=== PATIENT | male | born 1945 | race Caucasian/White ===

== ENCOUNTER 2018-02-12 08:08 | Emergency (ER) | payer MEDICARE, OTHER ==
[~2018-02-12] VITALS: Ht 167.6 cm; Wt 79.4 kg
--- NOTE | 2018-02-12 08:32 | NUR ---
PT IS IN ROOM #2B. DR SCHWARZ EVALUATED THE PT.
[2018-02-12 09:01] LABS: BASOPHILS % (AUTO) 0.7 % (0.0-2.0); EOSINOPHILS # (AUTO) 0.1 K/uL (0.0-0.7); HEMATOCRIT 39.2 % (36.7-47.1); HEMOGLOBIN 13.4 g/dL (12.5-16.3); LYMPHOCYTES # (AUTO) 1.4 K/uL (20.0-40.0); LYMPHOCYTES % (AUTO) 22.9 % (20.5-51.5); MEAN CORPUSCULAR HEMOGLOBIN 32.5 uug (23.8-33.4); MEAN CORPUSCULAR HGB CONC 34 g/dL (32.5-36.3); MEAN CORPUSCULAR VOLUME 95.4 fL (73.0-96.2); MONOCYTES # (AUTO) 0.7 K/uL (2.0-10.0); MONOCYTES % (AUTO) 11.1 % (0.0-11.0); NEUTROPHILS # (AUTO) 3.9 K/uL (1.8-8.9); NEUTROPHILS % (AUTO) 63.3 % (38.5-71.5); PLATELET COUNT (AUTO) 204 K/uL (152-348); RED BLOOD CELL COUNT(AUTO) 4.11 MIL/uL (4.06-5.63); WHITE BLOOD COUNT (AUTO) 6.1 K/uL (3.6-10.2)
[2018-02-12 09:11] LABS: ALANINE AMINOTRANSFERASE 28 U/L (16-63); ALKALINE PHOSPHATASE 78 U/L (50-136); ASPARTATE AMINOTRANSFERASE 25 U/L (15-37); BILIRUBIN,DIRECT 0.1 mg/dL (0.0-0.2); BILIRUBIN,TOTAL 0.3 mg/dL (0.2-1.0); CARBON DIOXIDE 28 mmol/L (21-32); CHLORIDE 103 mmol/L (98-107); GLUCOSE 102 mg/dL (74-106); POTASSIUM 3.8 mmol/L (3.5-5.1); TOTAL PROTEIN, SERUM 7.1 g/dL (6.4-8.2); UREA NITROGEN, BLOOD 18 mg/dL (7-18)
--- NOTE | 2018-02-12 09:34 | NUR ---
PT WAS D/C'd TO HOME. D/C INSTRUCTIONS GIVEN TO THE PT.
[2018-02-12 09:37] VITALS: BP 141/81
== END 2018-02-12 09:39 | disposition home or self-care (01) ==
LOC: ER 08:08
DX: Z77.098 Contact with and (suspected) exposure to other hazardous, chiefly nonmedicinal, chemicals (principal)
CPT/HCPCS: 36415; 85025; 93005; A4663

== ENCOUNTER 2018-02-14 19:24 | Emergency (ER) | payer MEDICARE, OTHER ==
[~2018-02-14] VITALS: Ht 167.6 cm; Wt 81.6 kg
--- NOTE | 2018-02-14 19:45 | NUR ---
Pt ambulates to ER with c/o bilateral lower leg swelling x 1 week. Pt denies pain. Pt denies chest pain/shortness of breath. Respirations even + unlabored.
[2018-02-14 20:15] LABS: BASOPHILS % (AUTO) 0.7 % (0.0-2.0); EOSINOPHILS # (AUTO) 0.1 K/uL (0.0-0.7); EOSINOPHILS % (AUTO) 1.5 % (0.0-7.0); HEMATOCRIT 38.6 % (36.7-47.1); HEMOGLOBIN 13.3 g/dL (12.5-16.3); LYMPHOCYTES # (AUTO) 1.5 K/uL (20.0-40.0); LYMPHOCYTES % (AUTO) 28.6 % (20.5-51.5); MEAN CORPUSCULAR HEMOGLOBIN 33.2 uug (23.8-33.4); MEAN CORPUSCULAR HGB CONC 35 g/dL (32.5-36.3); MEAN CORPUSCULAR VOLUME 96.1 fL (73.0-96.2); MONOCYTES # (AUTO) 0.5 K/uL (2.0-10.0); MONOCYTES % (AUTO) 10.4 % (0.0-11.0); NEUTROPHILS % (AUTO) 58.8 % (38.5-71.5); PLATELET COUNT (AUTO) 218 K/uL (152-348); RED BLOOD CELL COUNT(AUTO) 4.02 MIL/uL (4.06-5.63); WHITE BLOOD COUNT (AUTO) 5.1 K/uL (3.6-10.2)
[2018-02-14 20:22] LABS: CARBON DIOXIDE 28 mmol/L (21-32); CHLORIDE 103 mmol/L (98-107); CREATININE 1.1 mg/dL (0.6-1.3); GLUCOSE 96 mg/dL (74-106); POTASSIUM 3.9 mmol/L (3.5-5.1); UREA NITROGEN, BLOOD 17 mg/dL (7-18)
[2018-02-14 20:28] LABS: ALANINE AMINOTRANSFERASE 28 U/L (16-63); ALKALINE PHOSPHATASE 60 U/L (50-136); ASPARTATE AMINOTRANSFERASE 25 U/L (15-37); BILIRUBIN,TOTAL 0.3 mg/dL (0.2-1.0); TOTAL PROTEIN, SERUM 7.2 g/dL (6.4-8.2)
--- NOTE | 2018-02-14 21:39 | NUR ---
Patient discharged to home in stable conditon. Written and verbal after care instructions given. Patient verbalizes understanding of instructions.
[2018-02-14 21:47] VITALS: BP 138/81
== END 2018-02-14 21:49 | disposition home or self-care (01) ==
LOC: ER 19:26
DX: R60.9 Edema, unspecified (principal)
CPT/HCPCS: 36415; 71045; 85025; 85610; 93005; A4663

== ENCOUNTER 2020-06-12 19:47 | Inpatient (IN) | payer MEDICARE, OTHER ==
[~2020-06-12] VITALS: Ht 167.6 cm; Wt 74.1 kg
[2020-06-12] MEDS ORDERED: IV NORMAL SALINE 1,000 ML IV ONE (20:30)
--- NOTE | 2020-06-12 20:30 | NUR ---
Unable to intitate IV bolus of normal saline due to patient being very combative, and very resistant to placement of angiocath. Orders cancelled at this time.
--- NOTE | 2020-06-12 20:43 | NUR ---
metal room dental technician in room to draw blood.
--- NOTE | 2020-06-12 20:50 | NUR ---
cephalometric technician at bedside, unable to send patient to CT scan as he agitated and uncooperative, made aware.
[2020-06-12 21:05] LABS: BASOPHILS # (AUTO) 0.1 K/uL (0.0-8.0); BASOPHILS % (AUTO) 0.6 % (0.0-2.0); EOSINOPHILS % (AUTO) 0.1 % (0.0-7.0); HEMATOCRIT 44.2 % (36.7-47.1); HEMOGLOBIN 14.8 g/dL (12.5-16.3); LYMPHOCYTES # (AUTO) 1.2 K/uL (20.0-40.0); LYMPHOCYTES % (AUTO) 13.2 % (20.5-51.5); MEAN CORPUSCULAR HEMOGLOBIN 31.3 uug (23.8-33.4); MEAN CORPUSCULAR HGB CONC 34 g/dL (32.5-36.3); MEAN CORPUSCULAR VOLUME 93.1 fL (73.0-96.2); MONOCYTES # (AUTO) 0.6 K/uL (2.0-10.0); MONOCYTES % (AUTO) 6.5 % (0.0-11.0); NEUTROPHILS # (AUTO) 7.2 K/uL (1.8-8.9); NEUTROPHILS % (AUTO) 79.6 % (38.5-71.5); PLATELET COUNT (AUTO) 236 K/uL (152-348); RED BLOOD CELL COUNT(AUTO) 4.74 MIL/uL (4.06-5.63); WHITE BLOOD COUNT (AUTO) 9.1 K/uL (3.6-10.2)
[2020-06-12 21:12] LABS: CREATININE 1.3 mg/dL (0.6-1.3)
[2020-06-12 21:18] LABS: BILIRUBIN,TOTAL 0.3 mg/dL (0.2-1.0); TOTAL PROTEIN, SERUM 7.5 g/dL (6.4-8.2)
--- NOTE | 2020-06-12 21:43 | NUR ---
ALOC patient uncooperative with IV administration, keeps moving and attempting to grab hospital personnel. Patient tried to get out of bed and run out of the ER. Tie Binder notified for need for 1 to 1 sitter. Tie Binder stated that it is unavailable at this time, said to call security to watch the patient. Security called to bedside to monitor patient for elopement.
--- NOTE | 2020-06-12 21:58 | NUR ---
Patient becoming increasing agitated, combative, and aggressive. MD notifed. Pending new orders.
[2020-06-12] MEDS ORDERED: LORAZEPAM 2 MG/1 ML VIAL IM ONE ×2 (22:00→23:30)
[2020-06-12] MEDS ORDERED: diphenhydrAMINE 50 MG/1 ML VIAL IM ONE (22:00)
[2020-06-12] MEDS ORDERED: HALOPERIDOL LACTATE 5 MG/1 ML VIAL IM ONE ×2 (22:00→23:30)
[2020-06-12] MEDS ORDERED: diphenhydrAMINE 50 MG/1 ML VIAL ONE (22:06)
[2020-06-12] MEDS ORDERED: HALOPERIDOL LACTATE 5 MG/1 ML VIAL ONE (22:07)
[2020-06-12] MEDS ORDERED: LORAZEPAM 2 MG/1 ML VIAL ONE (22:08)
--- NOTE | 2020-06-12 22:12 | NUR ---
Patient still not alert and orientated, confused. Screaming continously in his room. MD made aware.
--- NOTE | 2020-06-12 22:50 | NUR ---
Patient requested to use the restroom, went to go assist the patient. He screamed angrily at me and urinated himself.
--- NOTE | 2020-06-12 23:55 | NUR ---
Patient is now cooperative and calm, released from restraints.
--- NOTE | 2020-06-12 23:55 | NUR ---
cancelled orders for ATIVAN & Haldol for patient.
--- NOTE | 2020-06-13 | NUR ---
test and turn up technician arrived to take patient to CT scan. Patient out for CT scan.
--- NOTE | 2020-06-13 00:20 | NUR ---
Patient calmer than before, however he keeps pulling off his blood pressure cuff, pulse oximeter, and electrodes constantly throughout the entire time he has been in my care making it difficult to measure consistent vital signs.
[2020-06-13 00:39] LABS: *BILIRUBIN,URIN 1+ (NEGATIVE); *BLOOD, URINE NEGATIVE (NEGATIVE); *COLOR,URINE YELLOW (YELLOW); *KETONES,URINE 2+ (NEGATIVE); *UROBILINOGEN,URINE 0.2 E.U./dl (NORMAL); LEUKOCYTE ESTERASE ,URINE NEGATIVE (NEGATIVE); NITRITE, URINE NEGATIVE (NEGATIVE); PH,URINE 5.5 (5.0-8.0); UGLUCOSE NEGATIVE (NEGATIVE)
--- NOTE | 2020-06-13 00:47 | NUR ---
[employer] [facility] called, KAMRAN Calderon paged. Pending call back.
[2020-06-13 00:48] LABS: *CLARITY,URINE HAZY (CLEAR)
[2020-06-13 00:49] LABS: BACTERIA,URINE NONE SEEN /HPF (NONE SEEN); MUCUS,URINE MODERATE /LPF (0-FEW); RBC,URINE 0-3 /HPF (0-3); SQUAMOUS EPITHELIAL CELL,UR FEW /HPF (NONE SEEN)
--- NOTE | 2020-06-13 00:49 | NUR ---
Called for room, patient will be going to telemetry room 315.
--- NOTE | 2020-06-13 00:58 | NUR ---
KAMRAN Calderon called back and connected to MD Arias.
[2020-06-13] MEDS ORDERED: MAGNESIUM HYDROXIDE 30 ML LIQUID UDC PO PRN (01:15)
[2020-06-13] MEDS ORDERED: ACETAMINOPHEN 325 MG TABLET PO PRN (01:15)
[2020-06-13] MEDS ORDERED: ONDANSETRON 4 MG/2 ML VIAL IV PRN (01:15)
[2020-06-13] MEDS ORDERED: Z GUARD REMEDY PASTE 57 GM TUBE TOP PRN (01:15)
--- NOTE | 2020-06-13 01:20 | NUR ---
Reattempted to place an IV with SHARONDA Starr and SHARONDA Schneider on patient. Patient attempted to punch my face. 22g placed on R wrist.
--- NOTE | 2020-06-13 01:42 | NUR ---
Report given to SHARONDA Calderon. Patient pending COVID result.
[2020-06-13] MEDS ORDERED: SENN-261 PO (01:44)
[2020-06-13] MEDS ORDERED: BACL10TA PO (01:44)
[2020-06-13] MEDS ORDERED: ATIVAN (01:44)
[2020-06-13] MEDS ORDERED: NAPR-1192 PO (01:44)
[2020-06-13] MEDS ORDERED: DOCU-270 PO (01:44)
[2020-06-13] MEDS ORDERED: HYDR-4209 PO (01:44)
--- NOTE | 2020-06-13 01:55 | NUR ---
animal technicianponcho Vallejo called back to notify that patient is COVID negative.
--- NOTE | 2020-06-13 02:30 | NUR ---
Pt. admitted to telemetry room 315, under care of AUTO WRECKER Fatou Calderon. Belongs List completed.
--- NOTE | 2020-06-13 02:55 | NUR ---
Received patient in bed from ED. Confused alert to self only. No s/s of acute distress noted at this time. Patient in RA denies SOB and pain. nurse monitoring in place. Right wrist IV patent and intact. Patient is calm and laying in bed. Bed locked and in lowest position with alarm on.
[2020-06-13] MEDS: IV NS 1000 ML 1,000 ML IV PRN ×2 (03:32→17:49)
[2020-06-13 03:33] VITALS: BP 147/85
[2020-06-13 04:00] VITALS: BP 147/85
[2020-06-13] MEDS ORDERED: OLANZAPINE 10 MG VIAL IM ONE ×2 (04:15→04:30)
--- NOTE | 2020-06-13 04:24 | NUR ---
Patient increasingly agitated, confused, and combative. Attempting to get out of bed, throwing side table, and kicking their legs at the staff. Unable to be redirected. Patient continued to grab and hit staff. Yelling "They're going to kill me, they're going to kill me. They want to take my marilyn". Code isabel initiated and notified KAMRAN Calderon of patient condition. New orders for one time Zyprexa 5mg IM. Will administer and continue to monitor patient for safety and adverse reactions.
[2020-06-13] MEDS: PANTOPRAZOLE SODIUM 40 MG TABLET.DR PO SCH (07:00)
--- NOTE | 2020-06-13 07:00 | NUR ---
Patient in bed attempting to get out of bed. Bilateral wrist restraints in place for safety. Patient unable to be redirected. Safety measures in place, will endorse to oncoming nurse.
[2020-06-13 07:20] LABS: BASOPHILS # (AUTO) 0.1 K/uL (0.0-8.0); BASOPHILS % (AUTO) 0.7 % (0.0-2.0); EOSINOPHILS # (AUTO) 0.2 K/uL (0.0-0.7); EOSINOPHILS % (AUTO) 2.1 % (0.0-7.0); HEMATOCRIT 43.3 % (36.7-47.1); HEMOGLOBIN 14.3 g/dL (12.5-16.3); LYMPHOCYTES # (AUTO) 2.1 K/uL (20.0-40.0); LYMPHOCYTES % (AUTO) 26.1 % (20.5-51.5); MEAN CORPUSCULAR HEMOGLOBIN 30.9 uug (23.8-33.4); MEAN CORPUSCULAR HGB CONC 33 g/dL (32.5-36.3); MEAN CORPUSCULAR VOLUME 93.6 fL (73.0-96.2); MONOCYTES # (AUTO) 0.8 K/uL (2.0-10.0); MONOCYTES % (AUTO) 10.3 % (0.0-11.0); NEUTROPHILS # (AUTO) 4.8 K/uL (1.8-8.9); NEUTROPHILS % (AUTO) 60.8 % (38.5-71.5); PLATELET COUNT (AUTO) 221 K/uL (152-348); RED BLOOD CELL COUNT(AUTO) 4.63 MIL/uL (4.06-5.63); WHITE BLOOD COUNT (AUTO) 7.9 K/uL (3.6-10.2)
--- NOTE | 2020-06-13 07:26 | NUR ---
Received in bed awake and oriented to name and responsive to stimuli. No resp distress noted. Patient on soft restraints due to danger to others. Patient noted agitated and combative. Attempts to redirect unsuccessful. Safety measures are maintained. Sitter at bedside. Patient is kept comfortable. Will continue to monitor.
[2020-06-13 07:43] LABS: BILIRUBIN,TOTAL 0.4 mg/dL (0.2-1.0); MAGNESIUM 1.8 mg/dL (1.8-2.4); PHOSPHOROUS 2.7 mg/dL (2.5-4.9); POTASSIUM 3.1 mmol/L (3.5-5.1)
[2020-06-13 07:55] LABS: THYROID STIMULATING HORMONE 0.364 mIU/mL (0.358-3.740)
[2020-06-13 09:18] VITALS: BP 152/96
[2020-06-13] MEDS ORDERED: POTASSIUM CHLORIDE 20 MEQ TAB.PRT.SR PO SCH (10:15)
[2020-06-13 12:02] VITALS: BP 145/82
--- NOTE | 2020-06-13 12:30 | NUR ---
Rafi son came to visit, given update on condition, unable to say why patient was on hospice. He had no complaints.
[2020-06-13] MEDS ORDERED: BACLOFEN 10 MG TABLET PO PRN (15:15)
[2020-06-13] MEDS ORDERED: HYDROCODONE/APAP 5-325MG TABLET PO SCH (15:15)
[2020-06-13] MEDS ORDERED: SENNOSIDES 1 TABLET PO PRN (15:15)
[2020-06-13 16:24] VITALS: BP 159/95
[2020-06-13] MEDS: DOCUSATE SODIUM 100 MG CAPSULE PO SCH (17:03)
--- NOTE | 2020-06-13 17:06 | NUR ---
Called [facility] message left to follow up with DNR paper and status. Awaiting call back.
--- NOTE | 2020-06-13 19:23 | NUR ---
ALERT AND ORIENTED TO NAME. NO RESPIRATORY DISTRESS. NO FACIAL GRIMACING NOTED. IV SITE INTACT AND PATENT TOLERATING HYDRATION. DUE MEDS GIVEN AND TOLERATED. PATIENT WITH EPISODE OF AGITATION AND COMBATIVENESS TO STAFF. ABLE TO REDIRECT SOMETIMES. SAFETY MEASURES MAINTAINED. SITTER AT BEDSIDE. KEPT COMFORTABLE. ENDORSED ACCORDINGLY.
[2020-06-13 20:00] VITALS: BP 152/99
[2020-06-13] MEDS: risperiDONE 0.5 MG TABLET PO SCH (20:58)
[2020-06-14 00:21] VITALS: BP 154/97
--- NOTE | 2020-06-14 00:29 | NUR ---
Received patient in bed, calm, and cooperative. No s/s of acute distress noted at this time. On RA denies SOB. Sitter at bedside for safety. Compliant with medications. Left wrist IV patent and intact. cardiac monitor in place. Safety measures initiated, bed locked in lowest position, alarm on and call light within reach.
[2020-06-14 06:06] VITALS: BP 154/93
[2020-06-14] MEDS: PANTOPRAZOLE SODIUM 40 MG TABLET.DR PO SCH (06:12)
[2020-06-14 06:32] LABS: BASOPHILS # (AUTO) 0.1 K/uL (0.0-8.0); BASOPHILS % (AUTO) 0.9 % (0.0-2.0); EOSINOPHILS # (AUTO) 0.2 K/uL (0.0-0.7); EOSINOPHILS % (AUTO) 3.1 % (0.0-7.0); HEMATOCRIT 39.7 % (36.7-47.1); HEMOGLOBIN 13.4 g/dL (12.5-16.3); LYMPHOCYTES % (AUTO) 29.1 % (20.5-51.5); MEAN CORPUSCULAR HEMOGLOBIN 30.9 uug (23.8-33.4); MEAN CORPUSCULAR HGB CONC 34 g/dL (32.5-36.3); MEAN CORPUSCULAR VOLUME 91.9 fL (73.0-96.2); MONOCYTES # (AUTO) 0.6 K/uL (2.0-10.0); NEUTROPHILS % (AUTO) 57.9 % (38.5-71.5); PLATELET COUNT (AUTO) 218 K/uL (152-348); RED BLOOD CELL COUNT(AUTO) 4.32 MIL/uL (4.06-5.63); WHITE BLOOD COUNT (AUTO) 6.8 K/uL (3.6-10.2)
--- NOTE | 2020-06-14 06:57 | NUR ---
Patient calm and resting in bed. Cooperative last night with plan of care. Stand by assist to the bathroom, steady. Left FA IV patent and intact. cafeteria monitor in place. Sitter at bedside for safety. Safety measures in place.
[2020-06-14 07:00] LABS: MAGNESIUM 1.5 mg/dL (1.8-2.4); PHOSPHOROUS 2.9 mg/dL (2.5-4.9); POTASSIUM 3.4 mmol/L (3.5-5.1)
--- NOTE | 2020-06-14 07:30 | NUR ---
Received pt in bed awake and watching tv more communicative. No respiratory distress noted. Denies pain. Sitter is at bedside. Bed is low and locked. Patient is assisted to bathroom cooperative. IV on lfa intact and patent hydration tolerated. Sitter at bedside. Kept comfortable. Will continue to monitor.
[2020-06-14] MEDS ORDERED: HYDROCODONE/APAP 5-325MG TABLET PO PRN (07:42)
[2020-06-14 07:45] VITALS: BP 152/98
--- NOTE | 2020-06-14 07:45 | NUR ---
Called [facility] and spoke to Katey application development liaison. She said patient has dpoa sons Eliot and Sae. She will fax paperwork and polst around 9am when office opens. Gave floor fax number.
[2020-06-14] MEDS: IV NS 1000 ML 1,000 ML IV PRN (07:51)
[2020-06-14] MEDS ORDERED: MAGNESIUM SULFATE/D5W 100 ML IV SCH (08:15)
[2020-06-14] MEDS ORDERED: POTASSIUM CHLORIDE 20 MEQ TAB.PRT.SR PO ONE (08:15)
--- NOTE | 2020-06-14 08:30 | NUR ---
KAMRAN Monroe made aware of bp readings nno at this time.
[2020-06-14] MEDS: risperiDONE 0.5 MG TABLET PO SCH ×2 (08:42→21:15)
[2020-06-14] MEDS: DOCUSATE SODIUM 100 MG CAPSULE PO SCH ×2 (08:42→17:24)
--- NOTE | 2020-06-14 09:10 | NUR ---
Called Ilia and made aware of head ct result foreign metallic body relating to right anterior globe. He said it's ok to proceed.
--- NOTE | 2020-06-14 09:45 | NUR ---
Received call from Ilia, talked to radiologist and doesn't think it's a good idea to do mri d/t head ct result of small metallic foreign body and will cancel MRI. Patient made aware. KAMRAN Monroe made aware.
[2020-06-14 12:00] VITALS: BP 140/91
--- NOTE | 2020-06-14 12:25 | NUR ---
Credit Collections Specialist Consultation requested to identify responsible democrat/decision maker. 11:50am: This CASTING REPAIRER reviewed patient's chart, and found a POLST that was signed by the patient, filed in the chart. The date on the POLST was 05/07/2020, and it was faxed to the hospital by [facility], which has been providing care for the patient. Per nursing notes, the [facility] had stated that patient has a DPOA, Alexandru and Quevedo. This CASTING REPAIRER called patient's son Ashu, , who was available to speak with this CASTING REPAIRER. Ashu stated that he was not aware of the POLST, and that he did not know who Alexandru and Quevedo were. Ashu stated that patient does not have a healthcare directive or POA agents, and that he and his 2 siblings (Torin and Britt) were patient's next-of-kin. Ashu stated that patient does not have a spouse. This CASTING REPAIRER then called [facility], and spoke with Caro in order to gather additional information. Caro transferred this CASTING REPAIRER to the nurse assigned to the patient's case, Deni, however Deni was not available and this CASTING REPAIRER left Deni a voicemail message asking for a call back. 12:15pm: This CASTING REPAIRER notified patient's attending physician Jayjay Monroe about above. This CASTING REPAIRER will attempt to gather further information in order to identify decision maker for the patient. This CASTING REPAIRER and RN Sasha attempted to meet with the patient, but patient was asleep. This CASTING REPAIRER to follow-up at a later time.
--- NOTE | 2020-06-14 15:01 | NUR ---
2:40pm: This PLASTIC MACHINE OPERATOR followed up with [facility] [phone] in order to speak with patient's assigned hospice nurse, Deni. Deni was available, and receptive to speaking with this PLASTIC MACHINE OPERATOR. Deni stated that patient has been enrolled in hospice since April 21, 2020. Soon afterwards, patient was hospitalized and re-enrolled into hospice on 05/07/2020. This PLASTIC MACHINE OPERATOR discussed patient's POLST and code status, and Deni stated that patient was oriented x 4 and responsible for self when completing the POLST. Deni stated that Deni is in regular contact with patient's son Ashu, who is patient's next-of-kin, and that it was Deni's decision to hospitalize the patient on 06/13 due to ALOC. This PLASTIC MACHINE OPERATOR clarified the information that was provided by Katey at [facility] regarding patient's DPOA being Alexandru and Quevedo, but Deni stated that this was incorrect information and that he had verified with Katey ([facility] at [facility]) that patient does not have a DPOA, and patient's next of kin is son Ashu. This information was relayed to patient's attending physician Dr. Jayjay Monroe and to credit charge authorizerSHARONDA Baez.
[2020-06-14 16:01] VITALS: BP 146/94
--- NOTE | 2020-06-14 16:08 | NUR ---
This LABORATORY SPECIALIST met with patient's son Ashu. LABORATORY SPECIALIST discussed the clarification LABORATORY SPECIALIST had obtained from the hospice agency regarding patient's next-of-kin (see previous SS note), and Ashu expressed agreement. Ashu is the next-of-kin, , and lives in [place]. Discharge plans were discussed, and Ashu asked about information pertaining to assisted living facilities and [facility] facilities. This LABORATORY SPECIALIST provided Ashu with information and eligibility criteria on the different facilities and levels of care, and stated that LABORATORY SPECIALIST would refer Ashu to case management for further information and discharge planning. Ashu expressed agreement. This LABORATORY SPECIALIST then discussed patient's healthcare wishes, and Ashu stated that he plans on having a conversation about this with the patient. LABORATORY SPECIALIST offered to provide Ashu the application for an advanced healthcare directive, and Ashu was receptive to this. PLAN: This LABORATORY SPECIALIST contacted case management ([facility]) regarding discharge planning, and Taz to follow up with patient's son Ashu. This LABORATORY SPECIALIST provided patient's son Ashu with an application for an advanced healthcare directive, and a copy of the [employer] Guide to Correction and Care. This LABORATORY SPECIALIST informed patient's attending physician Jayjay Monroe of above.
--- NOTE | 2020-06-14 19:00 | NUR ---
Patient awake but forgetful no sob no chest pain. Patient has episodes of agitation in the past, 1;1 sitter provided by supervisor green end department, Patient has no complain of pain at this time, cont to monitor.
[2020-06-14 19:22] VITALS: BP 136/89
--- NOTE | 2020-06-14 22:41 | NUR ---
Patient pulled his IV line second time, reorient patient but with confusion. Patient was reinserted left upper arm tolerate well. Patient on 1;1 sitter for safety, remind sitter to monitor patient so that patient will not pulled out IV lines.
[2020-06-15] MEDS: IV NS 1000 ML 1,000 ML IV PRN (02:33)
[2020-06-15 04:00] VITALS: BP 130/78
[2020-06-15 04:49] VITALS: BP 130/78
[2020-06-15] MEDS: PANTOPRAZOLE SODIUM 40 MG TABLET.DR PO SCH (06:19)
[2020-06-15 06:48] LABS: BASOPHILS % (AUTO) 0.8 % (0.0-2.0); EOSINOPHILS # (AUTO) 0.2 K/uL (0.0-0.7); HEMOGLOBIN 14.3 g/dL (12.5-16.3); LYMPHOCYTES # (AUTO) 1.8 K/uL (20.0-40.0); LYMPHOCYTES % (AUTO) 34.1 % (20.5-51.5); MEAN CORPUSCULAR HEMOGLOBIN 30.7 uug (23.8-33.4); MEAN CORPUSCULAR HGB CONC 33 g/dL (32.5-36.3); MEAN CORPUSCULAR VOLUME 92.5 fL (73.0-96.2); MONOCYTES # (AUTO) 0.5 K/uL (2.0-10.0); NEUTROPHILS # (AUTO) 2.9 K/uL (1.8-8.9); NEUTROPHILS % (AUTO) 53.1 % (38.5-71.5); PLATELET COUNT (AUTO) 222 K/uL (152-348); RED BLOOD CELL COUNT(AUTO) 4.65 MIL/uL (4.06-5.63); WHITE BLOOD COUNT (AUTO) 5.4 K/uL (3.6-10.2)
[2020-06-15 07:05] LABS: CREATININE 0.9 mg/dL (0.6-1.3); POTASSIUM 3.6 mmol/L (3.5-5.1)
--- NOTE | 2020-06-15 07:36 | NUR ---
Patient awake and watching tv. Per endorsement patient did not sleep last night. Asked pt and he said he doesn't really sleep much even at home. Calm and cooperative. Iv on left arm intact and patent. Iv hydration tolerated. Denies pain. No sob noted. Safety precautions maintained. Sitter at bedside. Kept comfortable. Needs attended. Will continue to monitor.
[2020-06-15 08:00] VITALS: BP 144/86
[2020-06-15] MEDS: risperiDONE 0.5 MG TABLET PO SCH ×2 (08:38→20:21)
[2020-06-15] MEDS: DOCUSATE SODIUM 100 MG CAPSULE PO SCH ×2 (08:45→17:12)
--- NOTE | 2020-06-15 11:19 | NUR ---
WOUND CARE CONSULT: PT PRESENTS WITH MULTIPLE SCARS AND SOME SCABS ON BUTTOCKS AND BODY, PRESENT ON ADMISSION. PT REQUESTS TOENAIL TRIM. TOENAILS AREA LONG AND SHARP. DR CALLEJAS NOTIFIED OF DPM CONSULT REQUEST. RECOMMENDATIONS MADE FOR SKIN PROTECTION. DISCUSSED WITH NURSING STAFF. MD IN AGREEMENT WITH PLAN OF CARE.
[2020-06-15 12:00] VITALS: BP 104/51
[2020-06-15 16:00] VITALS: BP 153/94
--- NOTE | 2020-06-15 19:00 | NUR ---
Alert and oriented. Pleasant and calm. No respiratory distress. Due meds given and tolerated. No nausea or vomiting. Denies pain. Needs attended. Will endorse accordingly for continuity of care.
--- NOTE | 2020-06-15 19:40 | NUR ---
Awake, alert and oriented x3, calm, in bed, HOB elevated, watching TV. Able to turn and reposition self in bed. Denies any pain/discomforts at this time. IVF infusing on left upper arm, intact and patent. No s/s if infiltration noted. Safety measure and fall prevention maintained. Sitter1:1 as ordered for safety. Continue care as planned
[2020-06-15 20:00] VITALS: BP 138/84
[2020-06-16 04:00] VITALS: BP 158/100
[2020-06-16] MEDS: PANTOPRAZOLE SODIUM 40 MG TABLET.DR PO SCH ×2 (06:30→06:32)
--- NOTE | 2020-06-16 06:45 | NUR ---
Shift End Report: Vs stable, Slept in between care. Able to ambulate to the bathroom with assist. Refused continues IVF as ordered. Charge nurse aware. HL intact and patent, no s/s of infiltration. All needs attended and met. No significant event reported all night. Continue current plan of care.
[2020-06-16] MEDS: risperiDONE 0.5 MG TABLET PO SCH ×2 (08:01→20:48)
[2020-06-16] MEDS: DOCUSATE SODIUM 100 MG CAPSULE PO SCH ×2 (08:01→16:06)
[2020-06-16] MEDS: CLOTRIMAZOLE 1% CREAM 30 GM TUBE TOP SCH (08:02)
[2020-06-16 11:46] VITALS: BP 151/78
[2020-06-16] MEDS: NITROFURANTOIN/NITROFURAN MAC 100 MG CAPSULE PO SCH ×2 (12:40→20:48)
[2020-06-16] MEDS: ENSURE ENLIVE (VAN) 240 ML LIQUID PO SCH (16:06)
--- NOTE | 2020-06-16 17:31 | NUR ---
No changes noted during shift, patient is ambulatory, BRP, no nausea, no vomiting, no fever noted
--- NOTE | 2020-06-16 17:50 | NUR ---
patient refused IV hydration, stated he is drinking enough, patient right to refuse respected, risks and benefits explained. patient verbalized understanding of it
--- NOTE | 2020-06-16 19:35 | NUR ---
Awake, in bed, watching TV. No s/s of pain/discomforts. HL on RENE intact and patent, no s/s of infiltration. IVF off at this time, attempted to connect IV, refused, claiming he doesn't need it because it always make him go to the bathroom many times and he does not like it. Explained to the patient the risk and benefit but refused to listen. Will endorse.
[2020-06-16 20:00] VITALS: BP 137/86
[2020-06-17 04:45] VITALS: BP 145/79
[2020-06-17] MEDS: PANTOPRAZOLE SODIUM 40 MG TABLET.DR PO SCH (05:47)
--- NOTE | 2020-06-17 06:19 | NUR ---
Shift End Report: VS stable. Slept in between care. Self care. Ambulatory. In and out his room when awake with slow but steady gait. Cooperative, calm and cooperative with care. No significant event reported all night. All needs attended and met. Continue care as planned.
[2020-06-17] MEDS: DOCUSATE SODIUM 100 MG CAPSULE PO SCH (08:10)
[2020-06-17] MEDS: ENSURE ENLIVE (VAN) 240 ML LIQUID PO SCH (08:10)
[2020-06-17] MEDS: risperiDONE 0.5 MG TABLET PO SCH (08:10)
[2020-06-17] MEDS: NITROFURANTOIN/NITROFURAN MAC 100 MG CAPSULE PO SCH (08:10)
[2020-06-17] MEDS: CLOTRIMAZOLE 1% CREAM 30 GM TUBE TOP SCH (08:31)
[2020-06-17 11:37] VITALS: BP 146/89
[2020-06-17] MEDS ORDERED: NITR100C11 PO (12:06)
[2020-06-17] MEDS ORDERED: PANT40TA2 PO (12:06)
[2020-06-17] MEDS ORDERED: RISP0.5T5 PO (12:06)
--- NOTE | 2020-06-17 15:44 | NUR ---
dc orders received noted and carried out.dc heplock per md orders.dc report given to the senior living rn.pt left the facility via ambulances in stable condition
== END 2020-06-17 15:47 | DRG 557 ==
LOC: ER 19:58 → TELE3 06-13 02:13 → MEDSURG3 06-14 09:00
PROVIDERS: ADMIT Nurse Practitioner Acute Care; ATTEND Nurse Practitioner Acute Care
PROC: 0HBRXZZ Excision of Toe Nail, External Approach (ICD-10-PCS; principal; 2020-06-15)
DX: M62.82 Rhabdomyolysis (principal); G93.41 Metabolic encephalopathy; N39.0 Urinary tract infection, site not specified; E46 Unspecified protein-calorie malnutrition; F29 Unspecified psychosis not due to a substance or known physiological condition; B95.61 Methicillin susceptible Staphylococcus aureus infection as the cause of diseases classified elsewhere; B35.1 Tinea unguium; B35.3 Tinea pedis; E83.42 Hypomagnesemia; E87.6 Hypokalemia; F41.9 Anxiety disorder, unspecified; Z86.19 Personal history of other infectious and parasitic diseases; Z91.81 History of falling; Z20.822 Contact with and (suspected) exposure to COVID-19; R53.1 Weakness; F03.90 Unspecified dementia, unspecified severity, without behavioral disturbance, psychotic disturbance, mood disturbance, and anxiety; E86.0 Dehydration; R90.89 Other abnormal findings on diagnostic imaging of central nervous system; Z68.26 Body mass index [BMI] 26.0-26.9, adult
CPT/HCPCS: 36415; 70450; 71045; 83605; 83735; 84100; 84443; 85025; 87040; 87086; 93005; A4663; G0378; J1200; J1630; J2060; J2358; J3475; J7030; J7070